=== PATIENT | female | born 1945 | race Caucasian/White ===

== ENCOUNTER 2019-10-31 | Emergency (ER) | payer MEDICARE ==
[2019-10-31] MEDS ORDERED: ESCITALOPRAM OXA5 MG PO (13:38)
[2019-10-31] MEDS ORDERED: KEFLEX500 M1 PO (13:39)
[2019-10-31] MEDS ORDERED: CIPROFLOXACN500 MG PO (13:39)
[2019-10-31] MEDS ORDERED: LEVOTHYROXIN75 MCG PO (13:39)
[2019-10-31] MEDS ORDERED: METFORMIN HCL500 M1 PO (13:40)
[2019-10-31] MEDS ORDERED: FARXIGA10 MG PO (13:40)
[2019-10-31] MEDS ORDERED: ESCITALOPRAM OX10 MG PO (13:40)
[2019-10-31] MEDS ORDERED: GLYBURIDE5 M1 PO (13:40)
[2019-10-31] MEDS ORDERED: FENOFIBRATE145 MG PO (13:41)
== END 2019-10-31 13:45 | disposition home or self-care (01) ==
DX: E11.621 Type 2 diabetes mellitus with foot ulcer (principal); L97.419 Non-pressure chronic ulcer of right heel and midfoot with unspecified severity; B95.61 Methicillin susceptible Staphylococcus aureus infection as the cause of diseases classified elsewhere